=== PATIENT | male | born 1960 | race Caucasian/White ===

== ENCOUNTER → 2020-08-17 10:17 | Outpatient (CLI) | payer OTHER, SELFPAY ==
--- NOTE | 2020-08-17 | DI.RAD.S_ITS ---
PROCEDURE: XR FOOT RT MIN 3V INDICATIONS: Pain in unspecified ankle and joints of unspecified foot TECHNIQUE: 3 views of the foot were acquired. COMPARISON: None. FINDINGS: Bones: No fracture. 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 Chronic os peroneum. Additional small os navicular. Scattered degenerative subchondral sclerosis and spurring. Prominent plantar and posterior calcaneal spurring. Soft tissues: No tibiotalar joint effusion. Achilles tendon appears normal. IMPRESSION: Diffuse degenerative changes as above Prominent plantar and posterior calcaneal spurs. Dictated by: Blayne Jaime M.D. on 08/17/2020 at 11:54 Approved by: Blayne Jaime M.D. on 08/17/2020 at 11:58
--- NOTE | 2020-08-17 | DI.RAD.S_ITS ---
PROCEDURE: XR FOOT LT MIN 3V INDICATIONS: Pain in unspecified ankle and joints of unspecified foot TECHNIQUE: 3 views of the foot were acquired. COMPARISON: None. FINDINGS: Bones: No fractures or dislocations. No suspicious bony lesions. Moderate 1st MTP joint degeneration and diffuse interphalangeal osteoarthritis. Plantar and posterior calcaneal spurs. Incidentally noted os peroneum, chronic. Soft tissues: No tibiotalar joint effusion. Achilles tendon appears normal. IMPRESSION: Diffuse degenerative changes as above. Dictated by: Blayne Jaime M.D. on 08/17/2020 at 11:53 Approved by: Blayne Jaime M.D. on 08/17/2020 at 11:54
== END ==
DX: M25.579 Pain in unspecified ankle and joints of unspecified foot (principal); M19.072 Primary osteoarthritis, left ankle and foot; M19.071 Primary osteoarthritis, right ankle and foot; M77.32 Calcaneal spur, left foot; M77.31 Calcaneal spur, right foot
CPT/HCPCS: 73630